=== PATIENT | female | born 1945 | race Caucasian/White ===

== ENCOUNTER 2023-04-13 05:18 | Inpatient (IN) | payer MEDICARE, OTHER ==
[2023-04-07 11:53] LABS: BASOPHILS % (AUTO) 0.9 % (0-1); EOSINOPHILS % (AUTO) 0.8 % (0-6); LYMPHOCYTES # (AUTO) 0.8 X10'3 (1.1-4.8); LYMPHOCYTES % (AUTO) 16.7 % (21-51); MEAN CORPUSCULAR HEMOGLOBIN 31.1 PG (27.0-31.0); MEAN CORPUSCULAR HGB CONC 33.7 g/dL (33.0-36.5); MEAN CORPUSCULAR VOLUME 92.4 FL (78-98); MEAN PLATELET VOLUME 9.4 FL (7.4-10.4); MONOCYTES # (AUTO) 0.2 X10'3 (0-0.9); MONOCYTES % (AUTO) 4.7 % (2-12); NEUTROPHILS # (AUTO) 3.5 X10'3 (1.8-7.7); NEUTROPHILS % (AUTO) 76.9 % (42-75); PRE OP HEMATOCRIT 39.8 % (35.0-45.0); PRE OP HEMOGLOBIN 13.4 g/dL (12.0-16.0); PRE OP PLATELET COUNT 174 X10'3 (140-440); PRE OP WHITE BLOOD COUNT 4.6 10'3 (4.8-10.8); RED BLOOD COUNT 4.31 X10'6 (4.20-5.60); RED CELL DISTRIBUTION WIDTH 14.3 % (11.5-14.5)
[2023-04-07 12:03] LABS: BILIRUBIN,URINE NEGATIVE (Neg); CLARITY,URINE CLEAR (Clear); COLOR,URINE YELLOW (Yellow); GLUCOSE, URINE NEGATIVE (Neg); KETONES,URINE 15 mg/dl (Neg); LEUKOCYTE ESTERASE ,URINE TRACE (Neg); NITRITES, URINE NEGATIVE (Neg); OCCULT BLOOD,URINE NEGATIVE (Neg); PROTEIN,URINE NEGATIVE (Neg); UROBILINOGEN,URINE 0.2 E.U/dL (0.2-1.0)
[2023-04-07 12:09] LABS: UA COLLECTION TYPE CLN CATCH MIDSTREAM
[2023-04-07 12:13] LABS: ALBUMIN 3.8 G/DL (3.4-5.0); ALBUMIN/GLOBULIN RATIO 1.3 (1.1-1.5); ALKALINE PHOSPHATASE 64 IU/L (46-116); BLOOD UREA NITROGEN 10 MG/DL (7-18); BUN/CREATININE RATIO 14.5 (10.0-20.0); CALCIUM 9.4 MG/DL (8.5-10.1); CHLORIDE 101 MMOL/L (99-107); CREATININE 0.69 MG/DL (0.40-0.90); PRE OP ALT 35 U/L (30-65); PRE OP ANION GAP 6 (8-16); PRE OP AST 29 U/L (10-37); PRE OP BILIRUB, TOTAL 2.3 MG/DL (0.0-1.0); PRE OP GLUCOSE 93 MG/DL (70-104); PRE OP POTASSIUM 4.1 MMOL/L (3.4-5.1); PRE OP SODIUM 137 MMOL/L (135-145); TOTAL CARBON DIOXIDE 29.6 MMOL/L (24-32); TOTAL PROTEIN 6.8 G/DL (6.4-8.2); eGFR 82 ML/MIN
[2023-04-07 12:26] LABS: BACTERIA,URINE FEW /HPF (Neg); RBC,URINE 0-2 /HPF (0-2); SQUAMOUS EPITHELIAL CELL,UR FEW /LPF (FEW); TRANSITIONAL EPI CELLS,URINE FEW /HPF; WBC,URINE 0-4 /HPF (0-4)
[~2023-04-13] VITALS: Ht 154.9 cm; Wt 50.3 kg
[2023-04-13] VITALS (33 sets, daily range): BP systolic 87–122; BP diastolic 43–61; PULSE 56–67; RESP 11–19; TEMP 97.8–98.6; O2SAT 92–99
[~2023-04-13 05:18] MED LIST: ATOR20TA PO; CHOL200074 PO; CYAN100085 SL; ESTRADIOL COMPOUND VG; PEDI1TAB59 PO; [UNRECOGNIZED DRUG - CODE] PO; ringers solution, lacted 1,000 ML IV SCH
[2023-04-13] MEDS ORDERED: tranexamic acid 650mg tablet PO ONE (05:30)
[2023-04-13] MEDS ORDERED: cefazolin 2gm/D5W 100mL 100 ML IV ONE (05:30)
[2023-04-13] MEDS ORDERED: vancomycin/NS 1 GM in NS 250 ML IV ONE (05:30)
[2023-04-13] MEDS ORDERED: famotidine 20mg tablet PO ONE (05:30)
--- NOTE | 2023-04-13 05:30 | NUR ---
PER TOTAL JOINT PROTOCOL, PATIENT HAS SHOWERED WITH HIBICLENS X5. BACTROBAN HAS BEEN USED BY PATIENT. NO LOSS OF SENSATION IN ANY EXTREMITY AND PEDAL PULSES ARE PALPABLE +2.
[2023-04-13] MEDS ORDERED: NITR100C11 PO (06:19)
[2023-04-13] MEDS ORDERED: tranexamic acid 100mg/ml inj. ONE (06:38)
[2023-04-13] MEDS ORDERED: mineral oil 10ml sterile, topical TP ONE (06:38)
[2023-04-13] MEDS ORDERED: ROPIVAcaine 0.5% (5mg/ml) 30ml vial ONE ×2 (06:39→07:17)
[2023-04-13] MEDS ORDERED: BUPIVACAINE/MELOXICAM 14 ML VIAL IL ONE ×2 (06:39→09:38)
[2023-04-13] MEDS ORDERED: fentaNYL/PF 50MCG/1 ML 2ML syringe ONE ×3 (07:16→08:41)
[2023-04-13] MEDS ORDERED: midazolam 1 mg/ML 2ml injection ONE (07:16)
[2023-04-13] MEDS ORDERED: dexamethasone sod phosphate 4mg/ml inj. ONE (07:16)
[2023-04-13] MEDS ORDERED: ondansetron/PF 4mg/2ml inj ONE (07:17)
[2023-04-13] MEDS ORDERED: LIDOcaine 2% (20mg/ml) 5ml vial ONE (07:17)
[2023-04-13] MEDS ORDERED: propofol inj 20 ML IV ONE (07:17)
[2023-04-13] MEDS ORDERED: desflurane 240ml liquid inh. IH ONE (07:30)
[2023-04-13] MEDS ORDERED: PHENYLephrine 10mg/ml 5ml injection IV ONE (07:30)
[2023-04-13] MEDS ORDERED: acetaminophen 1,000mg/100ml IV 100 ML IV ONE (07:42)
[2023-04-13] MEDS ORDERED: ePHEDrine 50MG/ML INJ. ONE (07:51)
[2023-04-13] MEDS ORDERED: labetalol 5mg/ml 20ml inj. IV PRN (08:25)
[2023-04-13] MEDS ORDERED: fentaNYL/PF 50MCG/1 ML 2ML syringe IV PRN ×2 (08:25)
[2023-04-13] MEDS ORDERED: hydrALAZINE 20mg/ml inj. IV PRN (08:25)
[2023-04-13] MEDS ORDERED: morphine 2 MG/ML inj. syringe IV PRN (08:25)
[2023-04-13] MEDS ORDERED: morphine 4 MG/ML inj SYRINge IV PRN (08:25)
[2023-04-13] MEDS ORDERED: ondansetron/PF 4mg/2ml inj IV PRN ×2 (08:25→09:35)
[2023-04-13] MEDS ORDERED: ringers solution, lacted 1,000 ML IV SCH (08:25)
--- NOTE | 2023-04-13 09:30 | NUR ---
Received from OR via BED, accompanied by Anesthesiologist and report given by SUMAN Anesthesiologist. PATIENT WAKING UP, DENIES PAIN, V/S WNL, SCD ON, 20G TO LEFT FOREARM, drsg to LEFT KNEE C/D/I WITH ICEPACK AND ELEVATED LLE. Addendum: 04/13/23 at 0942 by Pete Carrasco RN Amended: Links added.
[2023-04-13] MEDS ORDERED: magnesium hydroxide 30ml (MOM) UD suspension PO PRN (09:35)
[2023-04-13] MEDS ORDERED: HYDROmorphone 1 mg/ml syringe IV PRN (09:35)
[2023-04-13] MEDS ORDERED: acetaminophen 325mg tablet PO PRN (09:35)
[2023-04-13] MEDS ORDERED: bisacodyl 10mg suppository rectal RC PRN (09:35)
[2023-04-13] MEDS ORDERED: naloxone 0.4 mg/ml inj IV PRN (09:35)
[2023-04-13] MEDS ORDERED: oxyCODONE IR 5mg (immed. release) tablet PO PRN ×2 (09:35)
[2023-04-13] MEDS ORDERED: diphenhydrAMINE 25mg capsule PO PRN ×2 (09:35)
[2023-04-13] MEDS ORDERED: HYDROmorphone inj. 0.5 MG/0.5 ML DISP.SYRIN IV PRN (09:35)
--- NOTE | 2023-04-13 11:45 | NUR ---
SPOKE WITH EDDIE IN DIETARY, HE WILL NOTIFY KITCHEN OF LACTOSE INTOLERANCE ALLERGY.
--- NOTE | 2023-04-13 12:35 | NUR ---
PATIENT HAS MET ALL CRITERIA FOR TRANSFER TO ORTHO FLOOR. VSS. DRESSINGS INTACT. BED LOW, CALL LIGHT PRESENT AND 2 RAILS UP. RN PRESENT TO ACCEPT CARE OF PATIENT AND REPORT HAS BEEN CALLED. ALL QUESTIONS ANSWERED TO ACCEPTING RN. Addendum: 04/13/23 at 1248 by Pete Carrasco RN Amended: Links added.
--- NOTE | 2023-04-13 12:45 | NUR ---
Received report from DEAN PALMA from PACU. Patients' VSS, dressing is intact, powder pack in place. Patient has arrived, VS on post op monitoring. Fluids administered as directed.
[2023-04-13] MEDS: potassium cl 20mEq in 1/2 NS 1,000 ML IV SCH ×2 (13:02→17:35)
--- NOTE | 2023-04-13 13:15 | NUR ---
Patients BP is a little below average, patient reports it's her baseline. Called PACU to confirm her sats when they had the pt, it is. Patient has no distress. Alert and oriented, reports no abnormalities.
[2023-04-13] MEDS: acetaminophen 325mg tablet PO SCH ×2 (14:04→20:48)
[2023-04-13] MEDS: ceFAZolin/D5W- 1GM premix 50 ML IV SCH (15:56)
--- NOTE | 2023-04-13 18:00 | NUR ---
I have reviewed and agree with interventions, assessments, and documentation by Izzy Murphy LVN.
--- NOTE | 2023-04-13 18:31 | NUR ---
Problems reprioritized. Patient report given, questions answered & plan of care reviewed with MARGUERITE Schofield. No distress at this time.
--- NOTE | 2023-04-13 18:38 | NUR ---
Problems reprioritized. Patient report given, questions answered & plan of care reviewed with DEAN Pantoja. No distress at this time.
[2023-04-13] MEDS ORDERED: vancomycin/NS 1 GM ADD-VANTAGE 250 ML IV SCH (20:00)
[2023-04-13] MEDS: calcium carbonate/vitamin D3 tablet PO SCH (20:47)
[2023-04-13] MEDS: nitrofuran monohydrate/nitrofuran macrocrysal 100 MG (MacroBID) capsule PO SCH (20:49)
[2023-04-13] MEDS ORDERED: sennosides 8.6mg tablet PO SCH (21:00)
[2023-04-13] MEDS ORDERED: atorvastatin 20mg tablet PO SCH (21:00)
[2023-04-14] MEDS: ceFAZolin/D5W- 1GM premix 50 ML IV SCH (00:03)
[2023-04-14] MEDS: acetaminophen 325mg tablet PO SCH ×4 (01:16→17:13)
[2023-04-14] MEDS: potassium cl 20mEq in 1/2 NS 1,000 ML IV SCH ×2 (01:17→09:35)
[2023-04-14 02:00] VITALS: BP 106/51; PULSE 52; RESP 20; TEMP 97.7; O2SAT 97
--- NOTE | 2023-04-14 03:45 | NUR ---
Patient in room ORTHO 4020. I have received report from Pancho and had the opportunity to ask questions. Following this patient with MARGUERITE Astudillo, the primary nurse.
--- NOTE | 2023-04-14 03:52 | NUR ---
Problems reprioritized. Patient report given, questions answered & plan of care reviewed with chicho harris, who is going to be following WOOD SAWYER primary nurse Placido for this pt.
[2023-04-14 06:00] VITALS: BP 112/48; PULSE 47; RESP 16; TEMP 97.6; O2SAT 98
--- NOTE | 2023-04-14 06:30 | NUR ---
Patient in room ORTHO 4020. I have received report from Chandu EVERETT and had the opportunity to ask questions and assume patient care.
--- NOTE | 2023-04-14 06:39 | NUR ---
report to Usha EVERETT
[2023-04-14 06:44] LABS: BASOPHILS % (AUTO) 0.2 % (0-1); EOSINOPHILS % (AUTO) 0.1 % (0-6); HEMATOCRIT 30.6 % (35.0-45.0); HEMOGLOBIN 10.2 g/dl (12.0-16.0); LYMPHOCYTES # (AUTO) 0.9 X10'3 (1.1-4.8); LYMPHOCYTES % (AUTO) 7.6 % (21-51); MEAN CORPUSCULAR HEMOGLOBIN 30.8 PG (27.0-31.0); MEAN CORPUSCULAR HGB CONC 33.2 g/dL (33.0-36.5); MEAN CORPUSCULAR VOLUME 92.9 FL (78-98); MEAN PLATELET VOLUME 9.6 FL (7.4-10.4); MONOCYTES # (AUTO) 0.7 X10'3 (0-0.9); MONOCYTES % (AUTO) 6.1 % (2-12); NEUTROPHILS # (AUTO) 9.9 X10'3 (1.8-7.7); PLATELET COUNT 148 X10'3 (140-440); RED CELL DISTRIBUTION WIDTH 14.7 % (11.5-14.5); WHITE BLOOD COUNT 11.5 X10'3 (4.5-11.0)
[2023-04-14 07:10] LABS: ANION GAP 6 (8-16); CHLORIDE 102 MMOL/L (99-107); POTASSIUM 4.5 MMOL/L (3.5-5.1); SODIUM 135 MMOL/L (135-145); TOTAL CARBON DIOXIDE 27.3 MMOL/L (24-32)
[2023-04-14 08:00] VITALS: RESP 16; O2SAT 98
[2023-04-14] MEDS ORDERED: ESTRADIOL COMPOUND VG SCH (08:00)
[2023-04-14] MEDS ORDERED: multivitamins, therapeutics tablet PO SCH (08:00)
[2023-04-14] MEDS ORDERED: cyanocobalamin 500mcg tablet PO SCH (08:00)
[2023-04-14] MEDS ORDERED: cholecalciferol (vitamin D3) 1,000 unit (25mcg) tablet PO SCH (08:00)
[2023-04-14] MEDS ORDERED: aspirin 325mg tablet PO SCH (08:30)
[2023-04-14] MEDS: nitrofuran monohydrate/nitrofuran macrocrysal 100 MG (MacroBID) capsule PO SCH (09:53)
[2023-04-14] MEDS: calcium carbonate/vitamin D3 tablet PO SCH (09:54)
[2023-04-14 10:00] VITALS: BP 90/37; PULSE 55; RESP 14; TEMP 97.7; O2SAT 99
--- NOTE | 2023-04-14 11:01 | NUR ---
Joint surgery consult: Pt s/p L knee surgery this admit per EMR. Pt seen by RD at bedside for written/verbal high protein diet ed w/ RD contact information provided. Pt reports hx stomach CA w/ total gastrectomy takes sublingual B12 and MVM w/ Fe routinely and drinks protein drink typically snacks throughout day at home. Pt reports no nutrition concerns at this time outside lactose intolerance which kitchen already aware of. RD encouraged pt to contact dietitian's office if further nutrition questions/concerns. Addendum: 04/14/23 at [address] Amended: Links added.
--- NOTE | 2023-04-14 17:30 | NUR ---
Patient discharged home today with family. all belongings were gathered and IV removed. Discharge instructions were explained and questions were answered. Patient a&ox4 and appropriate for discharge. Patient was wheeled downstairs and helped into private vehicle.
--- NOTE | 2023-04-14 18:00 | NUR ---
Following this patient with primary nurse MARGUERITE Wei. This proposal manager writer performed own assessment. All other medication administration, interventions, assessments were done by patients primary nurse.
[2023-04-15] MEDS ORDERED: acetaminophen 325mg tablet PO PRN (09:35)
== END 2023-04-14 17:30 | disposition home or self-care (01) | DRG 470 ==
LOC: PAS IN 05:18 → UNDOADMIN 05:18 → PAS IN 09:35 → UNDOADMIN 09:35 → PAS IN 12:45 → ORTHO 4S 12:45
PROVIDERS: ADMIT Orthopaedic Surgery; ATTEND Orthopaedic Surgery
PROC: 8E0Y0CZ Robotic Assisted Procedure of Lower Extremity, Open Approach (ICD-10-PCS; 2023-04-13)
PROC: 8E0YXBZ Computer Assisted Procedure of Lower Extremity (ICD-10-PCS; 2023-04-13)
PROC: 3E0T3BZ Introduction of Anesthetic Agent into Peripheral Nerves and Plexi, Percutaneous Approach (ICD-10-PCS; 2023-04-13)
PROC: 3E0T33Z Introduction of Anti-inflammatory into Peripheral Nerves and Plexi, Percutaneous Approach (ICD-10-PCS; 2023-04-13)
PROC: 0SRD0J9 Replacement of Left Knee Joint with Synthetic Substitute, Cemented, Open Approach (ICD-10-PCS; principal; 2023-04-13 07:30)
DX: M17.12 Unilateral primary osteoarthritis, left knee (principal); M21.162 Varus deformity, not elsewhere classified, left knee
CPT/HCPCS: 36415; 80051; 80053; 81001; 82948; 85025; 87081; 87088; 93005; 97110; 97116; 97161; 97530; A4215; A4618; A7000; C1713; C1758; C1776; G0378; J0131; J0690; J1100; J2250; J2370; J2405; J2704; J2795; J3010; J3370; J3480; J3490; J7120

== ENCOUNTER 2023-04-15 19:12 | Emergency (ER) | payer MEDICARE, OTHER ==
[~2023-04-15] VITALS: Ht 154.9 cm; Wt 50.0 kg
[~2023-04-15 19:12] MED LIST changes: +NITR100C11 PO; -ringers solution, lacted 1,000 ML IV SCH
[2023-04-15 19:21] VITALS: BP 120/64; PULSE 65; RESP 17; TEMP 99; O2SAT 99
--- NOTE | 2023-04-15 20:51 | NUR ---
Call from Dr Cross, who told patient to leave ED and f/u with him at his office tomorrow.
== END 2023-04-15 21:43 | disposition left against medical advice (07) ==
LOC: ER 19:12
DX: T88.9XXA Complication of surgical and medical care, unspecified, initial encounter (principal); Z53.21 Procedure and treatment not carried out due to patient leaving prior to being seen by health care provider
CPT/HCPCS: 99281